=== PATIENT | female | born 1935 | race African-American/Black ===

== ENCOUNTER 2019-06-18 22:34 | Inpatient (IN) | payer MEDICARE, MEDICAID ==
[~2019-06-18] VITALS: Ht 162.6 cm; Wt 60.8 kg
[2019-06-18] MEDS ORDERED: ONDANSETRON HCL 4MG/2ML INJ IV STA (23:21)
[2019-06-18] MEDS ORDERED: SODIUM CHLORIDE 0.9% 1000ML BAG (SEPSIS BOLUS) IV ONE (23:30)
[2019-06-18] MEDS ORDERED: CEFTRIAXONE 1 G PREMIX 50 ML IV ONE (23:30)
[2019-06-19 00:14] LABS: PROTHROMBIN TIME 10.6 sec (9.6-11.0)
[2019-06-19 00:15] LABS: HEMOGLOBIN. 13.5 g/dL (12.0-16.0); MEAN CORPUSCULAR HEMOGLOBIN 28.9 pg (28.0-32.0); MEAN PLATELET VOLUME 11.1 fl (7.4-10.4); PLATELET 203 x1000/uL (130-400); RED BLOOD CELL COUNT 4.66 mill/uL (4.2-5.4); RED CELL DISTRIBUTION WIDTH 12.8 % (11.6-14.6)
[2019-06-19 00:19] LABS: CHLORIDE 100 mEq/L (98-107)
[2019-06-19 00:35] LABS: CREATINE KINASE 188 IU/L (26-192)
[2019-06-19 01:33] LABS: PLATELET ESTIMATE NORMAL
[2019-06-19 02:27] LABS: CLARITY URINE CLOUDY (CLEAR); COLOR URINE DARK YELLOW (YELLOW); KETONES URINE TRACE (NEGATIVE); LEUKOCYTE ESTERASE URINE TRACE (NEGATIVE); NITRITE URINE NEGATIVE (NEGATIVE); OCCULT BLOOD URINE NEGATIVE (NEGATIVE); PH URINE 5.5 (4.5-8.0); PROTEIN URINE 1+ (NEGATIVE); SPECIFIC GRAVITY URINE 1.022 (1.005-1.030)
[2019-06-19 08:55] VITALS: BP 154/69
[2019-06-19] MEDS ORDERED: CLONIDINE 0.1MG TABLET PO PRN (10:00)
[2019-06-19] MEDS ORDERED: ONDANSETRON HCL 4MG/2ML INJ IV PRN (10:00)
[2019-06-19] MEDS ORDERED: CEFTRIAXONE 1 G PREMIX 50 ML IV SCH ×2 (10:00)
[2019-06-19] MEDS ORDERED: GUAIFENESIN 200MG/10ML SUGAR FREE UDC PO PRN (10:00)
[2019-06-19] MEDS ORDERED: ACETAMINOPHEN 325MG TABLET PO PRN (10:00)
[2019-06-19] MEDS ORDERED: IPRATROPIUM/ALBUTEROL 0.5-3(2.5)MG/3ML NEB HHN PRN (10:00)
[2019-06-19] MEDS ORDERED: ENOXAPARIN 40MG/0.4ML SYR SUBCUT SCH (10:00)
[2019-06-19] MEDS ORDERED: DIPHENHYDRAMINE 50MG/ML VIAL IV PRN (10:00)
[2019-06-19] MEDS: ENOXAPARIN 30MG/0.3ML SYR SUBCUT SCH (10:47)
[2019-06-19] MEDS: SODIUM CHLORIDE 0.9% 1,000 ML IV SCH (10:48)
[2019-06-19] MEDS ORDERED: AMLO2.5T45 MT (10:59)
[2019-06-19] MEDS ORDERED: ALBU05 NEB (10:59)
[2019-06-19 12:00] VITALS: BP 159/59
[2019-06-19 13:06] LABS: PHOSPHORUS 2.7 mg/dL (2.5-4.9)
[2019-06-19 16:21] VITALS: BP 122/53
[2019-06-19 20:00] VITALS: BP 141/59
[2019-06-19] MEDS: CEFTRIAXONE 1 G PREMIX 50 ML IV SCH (23:23)
[2019-06-20] VITALS: BP 139/66
[2019-06-20 00:43] LABS: CREATINE KINASE 96 IU/L (26-192)
[2019-06-20 00:44] LABS: CREATINE KINASE MB FRACTION < 1.0 ng/mL (0.5-3.6)
[2019-06-20 04:00] VITALS: BP 126/62
[2019-06-20 06:59] LABS: BASOPHILS % 0.7 % (0.0-2.0); EOSINOPHILS % 2.5 % (0.0-5.0); HEMOGLOBIN. 9.4 g/dL (12.0-16.0); LYMPHOCYTES % 17.2 % (20.0-50.0); MEAN CORPUSCULAR HEMOGLOBIN 29.7 pg (28.0-32.0); MEAN CORPUSCULAR VOLUME 88.4 fL (81.0-99.0); MEAN PLATELET VOLUME 11.1 fl (7.4-10.4); MONOCYTES % 14.3 % (2.0-8.0); NEUTROPHILS % 65.3 % (40.0-76.0); PLATELET 130 x1000/uL (130-400); RED BLOOD CELL COUNT 3.17 mill/uL (4.2-5.4); RED CELL DISTRIBUTION WIDTH 12.7 % (11.6-14.6)
[2019-06-20] MEDS: ENOXAPARIN 30MG/0.3ML SYR SUBCUT SCH (08:44)
[2019-06-20 09:30] LABS: CHLORIDE 108 mEq/L (98-107)
[2019-06-20 09:41] LABS: HDL CHOLESTEROL 40 mg/dL (40-59); LDL CHOLESTEROL 77 mg/dL (5-100)
[2019-06-20 12:00] VITALS: BP 147/58
[2019-06-20 16:00] VITALS: BP 154/64
[2019-06-20] MEDS: SODIUM CHLORIDE 0.9% 1,000 ML IV SCH (19:08)
[2019-06-20 20:00] VITALS: BP 168/65
[2019-06-21] VITALS: BP 143/59
[2019-06-21] MEDS: CEFTRIAXONE 1 G PREMIX 50 ML IV SCH (00:25)
[2019-06-21] MEDS: SODIUM CHLORIDE 0.9% 1,000 ML IV SCH ×2 (00:35→12:10)
[2019-06-21 04:00] VITALS: BP 145/90
[2019-06-21 06:38] LABS: BASOPHILS % 0.8 % (0.0-2.0); EOSINOPHILS % 2.1 % (0.0-5.0); HEMATOCRIT. 30.5 % (36.0-48.0); HEMOGLOBIN. 10.1 g/dL (12.0-16.0); MEAN CORPUSCULAR HEMOGLOBIN 29.1 pg (28.0-32.0); MEAN CORPUSCULAR VOLUME 88.2 fL (81.0-99.0); MEAN PLATELET VOLUME 10.9 fl (7.4-10.4); MONOCYTES % 14.8 % (2.0-8.0); NEUTROPHILS % 66.3 % (40.0-76.0); PLATELET 141 x1000/uL (130-400); RED BLOOD CELL COUNT 3.45 mill/uL (4.2-5.4); RED CELL DISTRIBUTION WIDTH 12.8 % (11.6-14.6)
[2019-06-21 06:54] LABS: CHLORIDE 106 mEq/L (98-107)
[2019-06-21 08:00] VITALS: BP 189/63
[2019-06-21] MEDS: ENOXAPARIN 30MG/0.3ML SYR SUBCUT SCH (08:44)
[2019-06-21] MEDS ORDERED: POTASSIUM CHLORIDE INJ 40 MEQ in DEXT 5% WATER 250 ML IV NR (10:00)
[2019-06-21 12:00] VITALS: BP 164/68
[2019-06-21 16:00] VITALS: BP 149/68
[2019-06-21 17:53] VITALS: BP 149/68
== END 2019-06-21 19:00 | disposition home or self-care (01) | DRG 690 ==
LOC: ER 22:34 → 8WST 06-19 02:16 → EDBEDREQDT 06-19 02:19 → EDBEDREQTM 06-19 02:19 → EDBEDREQ 06-19 02:19 → EDBEDREQSVC 06-19 02:19 → ENRESERV 06-19 07:33 → ER 06-19 08:53
PROVIDERS: ADMIT Internal Medicine; ATTEND Internal Medicine
DX: N39.0 Urinary tract infection, site not specified (principal); W18.30XA Fall on same level, unspecified, initial encounter; I10 Essential (primary) hypertension; J44.9 Chronic obstructive pulmonary disease, unspecified; Z90.710 Acquired absence of both cervix and uterus; Y93.89 Activity, other specified; Y92.098 Other place in other non-institutional residence as the place of occurrence of the external cause; Y99.8 Other external cause status
CPT/HCPCS: 36415; 71045; 80048; 80053; 80061; 81003; 82550; 82553; 83605; 83735; 83880; 84100; 84145; 84443; 84484; 85025; 87804; 93005; 93970; 97162; 97166; 97530; 99291; C1893; J0696; J1200; J1650; J2405; J3480; J7030; J7060